=== PATIENT | female | born 1965 | race Caucasian/White ===

== ENCOUNTER 2020-12-16 23:38 | Emergency (ER) | payer OTHER, SELFPAY ==
[2020-12-17 00:51] LABS: BASOPHIL 0.8 % (0-2); HCT 45.2 % (37.0-47.0); HGB 14.6 g/dl (12.5-16.0); LYMPHOCYTE 30.6 % (15-48); MCH 29.6 pg (25.0-31.0); MCHC 32.3 g/dL (32.0-36.0); MCV 91.5 fL (78.0-100.0); MONOCYTE 5.9 % (0-12); MPV 11.4 fL (6.0-9.5); NEUTROPHIL 59.3 % (41-80); NRBC 0; PLT 147 K/uL (150-400); RBC 4.94 M/uL (4.20-5.40); RDW 14.1 % (11.5-14.0); WBC 8.4 K/uL (4.0-10.5)
[2020-12-17 01:00] LABS: INR 1.08 (0.9-1.2); PROTHROMBIN TIME 13.3 SECONDS (11.4-13.6)
[2020-12-17 01:01] LABS: D-DIMER 0.87 ug/mLFEU (0.00-0.41)
[2020-12-17 01:12] LABS: ALBUMIN 3.8 g/dL (3.4-5.0); BILIRUBIN - TOTAL 0.9 mg/dL (0.2-1.0); CREATININE 0.41 mg/dL (0.51-0.95); GLOBULIN (CALCULATION) 3.9 g/dL; POTASSIUM 3.8 mmol/L (3.5-5.1); TOTAL PROTEIN 7.7 g/dL (6.4-8.2)
[2020-12-17 01:15] LABS: PRO-BNP 568 pg/mL (<125)
[2020-12-17 01:28] LABS: CORONAVIRUS 2019 SARS-COV-2 NEGATIVE (NEGATIVE); INFLUENZA A NAA NEGATIVE (NEGATIVE)
[2020-12-17] MEDS ORDERED: LEVAQUIN750 MG PO (05:04)
[2020-12-17] MEDS ORDERED: TESSALON PERLE100 M1 PO (05:04)
[2020-12-17] MEDS ORDERED: VENTOLIN (2.5 MG/3 M INH (05:04)
== END 2020-12-17 05:25 | disposition home or self-care (01) ==
LOC: FER 23:38
PROVIDERS: Emergency Medicine
DX: J84.9 Interstitial pulmonary disease, unspecified (principal); R00.0 Tachycardia, unspecified; E11.9 Type 2 diabetes mellitus without complications; J45.909 Unspecified asthma, uncomplicated; Z87.891 Personal history of nicotine dependence; Z79.899 Other long term (current) drug therapy; Z79.84 Long term (current) use of oral hypoglycemic drugs; Z20.822 Contact with and (suspected) exposure to COVID-19
CPT/HCPCS: 36415; 71275; 80053; 83605; 83880; 84145; 84484; 85025; 85379; 85610; 93005; J0696; J7030; Q9967; U0002

== ENCOUNTER 2021-01-29 20:30 | Emergency (ER) | payer OTHER ==
[~2021-01-29 20:30] MED LIST: LEVAQUIN750 MG PO; TESSALON PERLE100 M1 PO; VENTOLIN (2.5 MG/3 M INH
[2021-01-29 21:15] LABS: BASOPHIL 0.5 % (0-2); EOSINOPHIL 0.6 % (0-5); HCT 46.9 % (37.0-47.0); HGB 15.1 g/dl (12.5-16.0); LYMPHOCYTE 12.9 % (15-48); MCH 29.5 pg (25.0-31.0); MCHC 32.2 g/dL (32.0-36.0); MCV 91.8 fL (78.0-100.0); MONOCYTE 1.9 % (0-12); MPV 12.2 fL (6.0-9.5); NEUTROPHIL 83.5 % (41-80); NRBC 0; PLT 206 K/uL (150-400); RBC 5.11 M/uL (4.20-5.40); RDW 14.4 % (11.5-14.0); WBC 12.4 K/uL (4.0-10.5)
[2021-01-29 21:26] LABS: INR 1.14 (0.9-1.2); PROTHROMBIN TIME 13.9 SECONDS (11.4-13.6)
[2021-01-29 21:27] LABS: PTT 29.1 SECONDS (22.2-34.7)
[2021-01-29 21:44] LABS: ALBUMIN 4.2 g/dL (3.4-5.0); BILIRUBIN - TOTAL 1.4 mg/dL (0.2-1.0); BUN/CREAT RATIO (CALC) 23.5 RATIO; CREATININE 0.51 mg/dL (0.51-0.95); GLOBULIN (CALCULATION) 3.9 g/dL; MAGNESIUM 1.5 mg/dL (1.8-2.4); TOTAL PROTEIN 8.1 g/dL (6.4-8.2)
[2021-01-29 21:56] LABS: CORONAVIRUS 2019 SARS-COV-2 NEGATIVE (NEGATIVE); INFLUENZA A NAA NEGATIVE (NEGATIVE)
[2021-01-29 21:59] LABS: LACTIC ACID 2.7 mmol/L (0.4-1.9)
[2021-01-29 23:31] LABS: BILIRUBIN NEGATIVE (NEGATIVE); BLOOD NEGATIVE Ery/uL (NEGATIVE); CLARITY CLEAR (CLEAR); COLOR YELLOW (YELLOW); GLUCOSE (U) 3+ mg/dL (NORMAL); LEUKOCYTES NEGATIVE Leu/uL (NEGATIVE); NITRITE NEGATIVE (NEGATIVE); PROTEIN 1+ mg/dL (NEGATIVE); UROBILINOGEN 0.2 mg/dL (0.2-1.0); pH 5.5 (5.0-9.0)
[2021-01-29 23:39] LABS: BACTERIA TRACE; URINARY RBC RARE; URINARY WBC RARE
== END 2021-01-30 03:07 | disposition other institution (70) ==
LOC: FER 20:30
PROVIDERS: Emergency Medicine
DX: I11.0 Hypertensive heart disease with heart failure (principal); I50.1 Left ventricular failure, unspecified; J96.01 Acute respiratory failure with hypoxia; I48.91 Unspecified atrial fibrillation; J90 Pleural effusion, not elsewhere classified; E11.9 Type 2 diabetes mellitus without complications; R42 Dizziness and giddiness; Z79.84 Long term (current) use of oral hypoglycemic drugs; Z20.822 Contact with and (suspected) exposure to COVID-19
CPT/HCPCS: 36415; 71275; 80053; 81001; 82728; 83605; 83615; 83735; 83880; 84145; 84443; 84484; 85025; 85379; 85610; 85730; 86140; 87040; 93005; J1940; Q9967; U0002